=== PATIENT | female | born 1945 | race Caucasian/White ===

== ENCOUNTER → 2019-02-25 | Outpatient (CLI) | payer MEDICARE | END | disposition home or self-care (01) | LOC: CFH 07:40 | PROVIDERS: ATTEND Internal Medicine Cardiovascular Disease | DX: R07.9 Chest pain, unspecified (principal); R06.02 Shortness of breath | CPT/HCPCS: 78452; 93017; A9502 ==

== ENCOUNTER 2020-04-11 07:49 | Day surgery (SDC) | payer MEDICARE ==
[~2020-04-11] VITALS: Ht 172.7 cm; Wt 112.3 kg
[2020-04-11 08:19] VITALS: BP 164/79
[2020-04-11] MEDS ORDERED: CYAN-10 PO (08:36)
[2020-04-11] MEDS ORDERED: VIT1TABL34 PO (08:36)
[2020-04-11] MEDS ORDERED: FLUT9.9S INH (08:36)
[2020-04-11] MEDS ORDERED: CELE200C PO (08:36)
[2020-04-11] MEDS ORDERED: MAGN400T36 PO (08:36)
[2020-04-11] MEDS ORDERED: CRAN425C3 PO (08:36)
[2020-04-11] MEDS ORDERED: GLUC-149 PO (08:36)
[2020-04-11] MEDS ORDERED: Calcium PO (08:36)
[2020-04-11] MEDS ORDERED: VITA100C8 PO (08:36)
[2020-04-11] MEDS ORDERED: VITA80004 PO (08:36)
[2020-04-11] MEDS ORDERED: MULT-464 PO (08:36)
[2020-04-11] MEDS ORDERED: Vitamin D PO (08:36)
[2020-04-11] MEDS ORDERED: Vitamin B6 PO (08:36)
[2020-04-11] MEDS ORDERED: TURM500C4 PO (08:36)
[2020-04-11] MEDS ORDERED: MELA5TAB14 PO (08:36)
[2020-04-11] MEDS ORDERED: LACT1CAP40 PO (08:36)
[2020-04-11] MEDS ORDERED: OMEG1CAP25 PO (08:36)
[2020-04-11 08:47] LABS: ANION GAP 4 mmol/L (5-15); CALCIUM 8.8 mg/dL (8.5-10.1); CHLORIDE 111 mmol/L (98-107)
[2020-04-11] MEDS ORDERED: LIDOCAINE 1%, 20ML ONE (10:36)
[2020-04-11] MEDS ORDERED: FENTANYL PF 100 MCG/2ML ONE ×2 (10:36→11:13)
[2020-04-11] MEDS ORDERED: MIDAZOLAM 1 MG/ML, 5ML ONE (10:36)
== END 2020-04-11 14:33 | disposition home or self-care (01) ==
LOC: CACL 07:49
PROVIDERS: ATTEND Internal Medicine Cardiovascular Disease
DX: R07.9 Chest pain, unspecified (principal); M19.90 Unspecified osteoarthritis, unspecified site; E66.9 Obesity, unspecified; Z79.891 Long term (current) use of opiate analgesic; Z79.899 Other long term (current) drug therapy; Z88.0 Allergy status to penicillin; Z96.643 Presence of artificial hip joint, bilateral; Z98.84 Bariatric surgery status; Z98.890 Other specified postprocedural states; Z83.3 Family history of diabetes mellitus; Z82.49 Family history of ischemic heart disease and other diseases of the circulatory system
CPT/HCPCS: 36415; 80048; 93458; 99156; 99157; C1760; C1769; C1894; J2250; J3010; Q9967

== ENCOUNTER 2020-05-05 09:35 | Outpatient (CLI) | payer MEDICARE ==
[~2020-05-05 09:35] MED LIST: CELE200C PO; CRAN425C3 PO; CYAN-10 PO; Calcium PO; FLUT9.9S INH; GLUC-149 PO; LACT1CAP40 PO; MAGN400T36 PO; MELA5TAB14 PO; MULT-464 PO; OMEG1CAP25 PO; TURM500C4 PO; VIT1TABL34 PO; VITA100C8 PO; VITA80004 PO; Vitamin B6 PO; Vitamin D PO
== END 2020-05-05 23:59 | disposition home or self-care (01) ==
LOC: CVU 09:35
PROVIDERS: ATTEND Internal Medicine Cardiovascular Disease
DX: R10.31 Right lower quadrant pain (principal); M79.651 Pain in right thigh
CPT/HCPCS: 93926

== ENCOUNTER → 2021-04-20 | Outpatient (CLI) | payer MEDICARE ==
[~2021-04-20] MED LIST changes: -LACT1CAP40 PO; +LACT1CAP45 PO; +VITA100C10 PO; -VITA100C8 PO
== END | disposition home or self-care (01) ==
LOC: CVU 14:22
PROVIDERS: ATTEND Registered Nurse
DX: I65.23 Occlusion and stenosis of bilateral carotid arteries (principal); R42 Dizziness and giddiness
CPT/HCPCS: 93880